=== PATIENT | male | born 1960 | race Caucasian/White ===

== ENCOUNTER → 2018-10-20 | Outpatient (CLI) | payer SELFPAY ==
[~2018-10-20] MED LIST: BP MED; FLUO10 PO; IBUP400 PO; MULVITMIND PO; Sleep Aid25 M1 PO; VITNEPH PO
[2018-10-20 15:18] LABS: BASOPHILS ABSOLUTE AUTO 0.04 K/mm3 (0.00-0.23); BASOPHILS PERCENT AUTO 1 % (0-2); EOSINOPHILS ABSOLUTE AUTO 0.12 K/mm3 (0.00-0.68); EOSINOPHILS PERCENT AUTO 2 % (0-6); Hematocrit 40.8 % (37.0-53.0); Hemoglobin 13.7 g/dL (13.5-17.5); IMMATURE GRAN ABSOLUTE AUTO 0.01 K/mm3 (0.00-0.10); IMMATURE GRAN PERCENT AUTO 0 % (0-1); LYMPHOCYTES PERCENT AUTO 32 % (21-46); MONOCYTES ABSOLUTE AUTO 0.29 K/mm3 (0.16-1.47); MONOCYTES PERCENT AUTO 6 % (4-13); Mean Corpuscular HGB 30.2 pg (26.0-34.0); Mean Corpuscular HGB Conc 33.6 g/dL (31.5-36.5); Mean Corpuscular Volume 90 fL (80-100); Mean Platelet Volume 9.5 fL (9.1-12.4); NEUTROPHILS ABSOLUTE AUTO 2.97 K/mm3 (1.96-9.15); NEUTROPHILS PERCENT AUTO 59 % (41-73); Platelet Count 153 K/mm3 (150-400); RDW Coefficient Variation 12.8 % (11.7-14.2); RDW Standard Deviation 42.1 fL (35.1-46.3); Red Blood Cell Count 4.53 M/mm3 (4.30-5.90); White Blood Cell Count 5.03 K/mm3 (4.00-11.30)
== END | disposition home or self-care (01) ==
LOC: LAB EV 15:13 → LAB SHORT 15:13
PROVIDERS: Physician Assistant Surgical
DX: M79.675 Pain in left toe(s) (principal)
CPT/HCPCS: 84550; 85025

== ENCOUNTER 2022-03-06 10:55 | Emergency (ER) | payer OTHER ==
[~2022-03-06] VITALS: Ht 182.9 cm; Wt 72.6 kg
[2022-03-06 11:43] LABS: BASOPHILS ABSOLUTE AUTO 0.03 K/mm3 (0.00-0.23); BASOPHILS PERCENT AUTO 1 % (0-2); EOSINOPHILS ABSOLUTE AUTO 0.02 K/mm3 (0.00-0.68); EOSINOPHILS PERCENT AUTO 0 % (0-6); Hemoglobin 14.5 g/dL (13.5-17.5); IMMATURE GRAN ABSOLUTE AUTO 0.01 K/mm3 (0.00-0.10); IMMATURE GRAN PERCENT AUTO 0 % (0-1); LYMPHOCYTES ABSOLUTE AUTO 0.72 K/mm3 (0.84-5.20); LYMPHOCYTES PERCENT AUTO 13 % (21-46); MONOCYTES ABSOLUTE AUTO 0.24 K/mm3 (0.16-1.47); MONOCYTES PERCENT AUTO 4 % (4-13); Mean Corpuscular Volume 94 fL (80-100); Mean Platelet Volume 9.1 fL (9.1-12.4); NEUTROPHILS ABSOLUTE AUTO 4.51 K/mm3 (1.96-9.15); NEUTROPHILS PERCENT AUTO 82 % (41-73); Platelet Count 146 K/mm3 (150-400); RDW Coefficient Variation 13.4 % (11.7-14.2); RDW Standard Deviation 46.7 fL (35.1-46.3); Red Blood Cell Count 4.67 M/mm3 (4.30-5.90); White Blood Cell Count 5.53 K/mm3 (4.00-11.30)
[2022-03-06 12:00] LABS: Albumin/Globulin Ratio 1.3 (0.8-1.8); Bilirubin, Total 0.5 mg/dL (0.1-1.0); Bun/Creatinine Ratio 17.5 (12.0-20.0); Calcium, Blood 8.7 mg/dL (8.5-10.1); Creatinine, Blood 0.63 mg/dL (0.60-1.20); Globulin, Blood 3.1 g/dL (2.2-4.0); Magnesium, Blood 1.9 mg/dL (1.6-2.4); Potassium, Blood 3.9 mmol/L (3.5-5.5); Total Protein, Blood 7.1 g/dL (6.4-8.2)
[2022-03-06 14:25] LABS: U Amphetamine Screen Not Detected; U Barbituate Screen Not Detected; U Benzodiazapine Screen Not Detected; U Buprenorphine Screen Not Detected; U Cannabinoids Screen DETECTED; U Cocaine Screen Not Detected; U Methadone Screen Not Detected; U Methamphetamine Screen Not Detected; U Opiates Screen Not Detected; U Oxycodone Screen Not Detected; U Phencyclidine Screen Not Detected; U Propoxyphene Screen Not Detected
== END 2022-03-06 15:10 | disposition left against medical advice (07) ==
LOC: ER 10:55
PROVIDERS: Physician Assistant
DX: G40.409 Other generalized epilepsy and epileptic syndromes, not intractable, without status epilepticus (principal); Z79.899 Other long term (current) drug therapy
CPT/HCPCS: 70450; 80053; 83735; 85025; 93005; 93010; G0480

== ENCOUNTER 2022-04-14 06:51 | Emergency (ER) | payer OTHER ==
[~2022-04-14] VITALS: Ht 182.9 cm; Wt 72.6 kg
[2022-04-14 07:05] LABS: Calcium, Ionized (POC) 1.13 mmol/L (1.10-1.46); Chloride (POC) 102 mmol/L (98-108); Creatinine (POC) 0.9 mg/dL (0.8-1.3); Glucose (ISTAT POC) 129 mg/dL (70-99); Hemoglobin (POC) 15.3 g/dL (13.5-17.5); Potassium (POC) 4.1 mmol/L (3.5-5.5); Sodium (POC) 140 mmol/L (135-148); Total CO2 (POC) 27 mmol/L (21-32)
[2022-04-14 07:11] LABS: BASOPHILS ABSOLUTE AUTO 0.03 K/mm3 (0.00-0.23); BASOPHILS PERCENT AUTO 1 % (0-2); EOSINOPHILS ABSOLUTE AUTO 0.04 K/mm3 (0.00-0.68); EOSINOPHILS PERCENT AUTO 1 % (0-6); Hematocrit 44.2 % (37.0-53.0); Hemoglobin 14.7 g/dL (13.5-17.5); IMMATURE GRAN ABSOLUTE AUTO 0.01 K/mm3 (0.00-0.10); IMMATURE GRAN PERCENT AUTO 0 % (0-1); LYMPHOCYTES ABSOLUTE AUTO 0.83 K/mm3 (0.84-5.20); LYMPHOCYTES PERCENT AUTO 21 % (21-46); MONOCYTES ABSOLUTE AUTO 0.18 K/mm3 (0.16-1.47); MONOCYTES PERCENT AUTO 5 % (4-13); Mean Corpuscular HGB 31.2 pg (26.0-34.0); Mean Corpuscular HGB Conc 33.3 g/dL (31.5-36.5); Mean Corpuscular Volume 94 fL (80-100); Mean Platelet Volume 8.7 fL (9.1-12.4); NEUTROPHILS ABSOLUTE AUTO 2.91 K/mm3 (1.96-9.15); NEUTROPHILS PERCENT AUTO 73 % (41-73); Platelet Count 164 K/mm3 (150-400); RDW Coefficient Variation 13.3 % (11.7-14.2); RDW Standard Deviation 46.1 fL (35.1-46.3); Red Blood Cell Count 4.71 M/mm3 (4.30-5.90)
[2022-04-14] MEDS ORDERED: MELO7.5 (07:22)
[2022-04-14] MEDS ORDERED: NORTRIPTYLINE PO (07:22)
[2022-04-14 07:28] LABS: Alanine Aminotransfer (ALT/SGP 83 U/L (12-78); Albumin, Blood 3.8 g/dL (3.4-5.0); Albumin/Globulin Ratio 1.1 (0.8-1.8); Alk Phos 129 U/L (50-136); Anion Gap 6 mmol/L (6-16); Aspartate Aminotrans (AST/SGOT 76 U/L (12-37); Bilirubin, Total 0.5 mg/dL (0.1-1.0); Blood Urea Nitrogen 11 mg/dL (8-24); CO2, Blood 29 mmol/L (21-32); Calcium, Blood 9.1 mg/dL (8.5-10.1); Chloride, Blood 105 mmol/L (98-108); Creatinine, Blood 0.78 mg/dL (0.60-1.20); Globulin, Blood 3.4 g/dL (2.2-4.0); Glomerular Filtration Rate 103 (60-); Glucose, Blood 130 mg/dL (70-99); Magnesium, Blood 1.5 mg/dL (1.6-2.4); Potassium, Blood 4.1 mmol/L (3.5-5.5); Sodium, Blood 140 mmol/L (136-145); Total Protein, Blood 7.2 g/dL (6.4-8.2)
== END 2022-04-14 10:47 | disposition home or self-care (01) ==
LOC: ER 06:51
PROVIDERS: Emergency Medicine
DX: R56.9 Unspecified convulsions (principal); F10.10 Alcohol abuse, uncomplicated; Z88.5 Allergy status to narcotic agent; Z79.899 Other long term (current) drug therapy; F17.200 Nicotine dependence, unspecified, uncomplicated
CPT/HCPCS: 80047; 80053; 83735; 84484; 85014; 85025; 93005; 93010; J7030

== ENCOUNTER 2022-07-31 06:22 | Observation (INO) | payer OTHER ==
[~2022-07-31] VITALS: Ht 182.9 cm; Wt 80.0 kg
[~2022-07-31 06:22] MED LIST changes: +MELO7.5; +NORTRIPTYLINE PO
[2022-07-31 07:02] LABS: BASOPHILS ABSOLUTE AUTO 0.02 K/mm3 (0.00-0.23); BASOPHILS PERCENT AUTO 0 % (0-2); EOSINOPHILS ABSOLUTE AUTO 0.07 K/mm3 (0.00-0.68); EOSINOPHILS PERCENT AUTO 1 % (0-6); Hematocrit 44.2 % (37.0-53.0); Hemoglobin 13.9 g/dL (13.5-17.5); IMMATURE GRAN ABSOLUTE AUTO 0.01 K/mm3 (0.00-0.10); IMMATURE GRAN PERCENT AUTO 0 % (0-1); LYMPHOCYTES ABSOLUTE AUTO 1.02 K/mm3 (0.84-5.20); LYMPHOCYTES PERCENT AUTO 19 % (21-46); MONOCYTES ABSOLUTE AUTO 0.28 K/mm3 (0.16-1.47); MONOCYTES PERCENT AUTO 5 % (4-13); Mean Corpuscular HGB 30.5 pg (26.0-34.0); Mean Corpuscular HGB Conc 31.4 g/dL (31.5-36.5); Mean Corpuscular Volume 97 fL (80-100); Mean Platelet Volume 9.2 fL (9.1-12.4); NEUTROPHILS ABSOLUTE AUTO 3.99 K/mm3 (1.96-9.15); NEUTROPHILS PERCENT AUTO 74 % (41-73); Platelet Count 145 K/mm3 (150-400); RDW Standard Deviation 46.7 fL (35.1-46.3); Red Blood Cell Count 4.56 M/mm3 (4.30-5.90); White Blood Cell Count 5.39 K/mm3 (4.00-11.30)
[2022-07-31 07:12] LABS: Alanine Aminotransfer (ALT/SGP 25 U/L (12-78); Albumin, Blood 3.5 g/dL (3.4-5.0); Albumin/Globulin Ratio 1.1 (0.8-1.8); Alk Phos 106 U/L (50-136); Anion Gap 6 mmol/L (6-16); Aspartate Aminotrans (AST/SGOT 29 U/L (12-37); Bilirubin, Total 0.3 mg/dL (0.1-1.0); Blood Urea Nitrogen 11 mg/dL (8-24); CO2, Blood 24 mmol/L (21-32); Calcium, Blood 8.8 mg/dL (8.5-10.1); Chloride, Blood 111 mmol/L (98-108); Creatinine, Blood 0.73 mg/dL (0.60-1.20); Ethanol (Alcohol), Blood, Med <3 mg/dL; Globulin, Blood 3.2 g/dL (2.2-4.0); Glomerular Filtration Rate 104 (60-); Glucose, Blood 131 mg/dL (70-99); Potassium, Blood 4.8 mmol/L (3.5-5.5); Sodium, Blood 141 mmol/L (136-145); Total Protein, Blood 6.7 g/dL (6.4-8.2)
[2022-07-31 08:26] LABS: Source, Urine Clean Catch
[2022-07-31 08:29] LABS: Bilirubin, Urine Neg (Neg); Blood, Urine Neg (Neg); Glucose Qualitative, Urine Neg (Neg); Ketones, Urine Neg (Neg); Leukocyte Esterase, Urine Neg (Neg); Nitrite, Urine Neg (Neg); Protein, Urine Neg (Neg); Specific Gravity, Urine 1.015 (1.003-1.022); Urobilinogen, Urine NORM (Normal); pH, Urine 6.5 (5.0-8.0)
[2022-07-31 08:30] LABS: Appearance, Urine Clear (Clear); Color, Urine Yellow (P-Yellow)
[2022-07-31 08:55] LABS: U Amphetamine Screen Not Detected; U Barbituate Screen Not Detected; U Benzodiazapine Screen Not Detected; U Cannabinoids Screen DETECTED; U Cocaine Screen Not Detected; U Methadone Screen Not Detected; U Methamphetamine Screen Not Detected; U Opiates Screen Not Detected; U Phencyclidine Screen Not Detected
[2022-07-31 08:56] LABS: U Buprenorphine Screen Not Detected; U Oxycodone Screen Not Detected; U Propoxyphene Screen Not Detected
[2022-07-31] MEDS ORDERED: Nortriptyline H75 MG PO (09:25)
--- NOTE | 2022-07-31 16:09 | NUR ---
SHIFT SUMMARY: ASSUMED CARE OF PATIENT UPON HIS ARRIVAL FROM ED AT 1130. WAS SLEEPING IN ARRIVAL, AROUSEABLE TO SPEECH. TRANSFERRED SELF TO BED FROM [facility] AND IMMEDIATELY BEGAN TO VOMIT. MEDICATIONS RECONCILED. NO SEIZURE ACTIVITY NOTED SINCE ARRIVAL.
--- NOTE | 2022-08-01 04:13 | NUR ---
SHIFT SUMMARY PT SLEPT MUCH OF THE NIGHT. WHEN AWAKE PT IS SLOW TO RESPOND WITH MILD CONFUSION. REPEATING QUESIONS FREQUENTLY AFTER RECENTLY RECIEVING AN ANSWER. DOES NOT REMEMBER EVENTS THAT BROUGHT HIM TO THE HOSPITAL. NO SEIZURE ACTIVITY NOTED THIS EVENING. VITAL SIGNS STABLE. PT DENIES PAIN. ATE SEVERAL CLEAR LIQUID SNACKS THROUGHOUT THE NIGHT. OVERALL, PT HAD AN UNEVENTFUL NIGHT.
[2022-08-01] MEDS ORDERED: LEVE500 PO (13:46)
--- NOTE | 2022-08-01 16:09 | NUR ---
PT AWAKE DURING SHIFT REPORT, JUST GETTING TO TO VISIT. PT WANTING FOOD AND THEN TO GO HOME. DIET ADVANCED TO REGULAR PER DR CALI AND PT REQUEST. PT TOLERATED WELL. DR CALI LATER IN TO SEE PT AND DISCUSS PLAN OF CARE. NO FURTHER SEIZURE ACTIVITY SINCE COMING TO ER. PT TO D/C TO HOME WITH ANTI-SEIZURE MEDICATION. PT AND VERBALIZED UNDERSTANDING. MEDS FAXED TO [facility], PER REQUEST. PT INDEPENDENT IN AND ABLE TO DRESS HIMSELF. IV SITE D/C'D WNL'S. D/C INSTRUCTIONS REVIEWED WITH PT AND . PT ASSISTED OUT TO 'S CAR VIA W/C.
== END 2022-08-01 14:09 | disposition home or self-care (01) ==
LOC: ER 06:22 → MEDS 06:23
PROVIDERS: Emergency Medicine; ADMIT Internal Medicine
DX: G40.209 Localization-related (focal) (partial) symptomatic epilepsy and epileptic syndromes with complex partial seizures, not intractable, without status epilepticus (principal); R73.9 Hyperglycemia, unspecified; F17.200 Nicotine dependence, unspecified, uncomplicated; Z88.5 Allergy status to narcotic agent; Z79.899 Other long term (current) drug therapy
CPT/HCPCS: 36415; 70450; 80053; 81003; 82947; 83036; 84146; 84484; 85025; 93005; 93010; 96366; 96367; 96375; A9270; G0378; G0480; J1885; J1953; J2405; J3411; J7030; J7050

== ENCOUNTER 2023-03-03 08:13 | Day surgery (SDC) | payer OTHER, BC ==
[~2023-03-03] VITALS: Ht 180.3 cm; Wt 71.5 kg
[~2023-03-03 08:13] MED LIST changes: +ALBU90OI INH; +LEVE500 PO; +Nortriptyline H75 MG PO
[2023-03-03 09:36] VITALS: BP 110/77
[2023-03-03] MEDS ORDERED: TRELEGY ELLIPT1 EACH INH (09:41)
--- NOTE | 2023-03-03 10:25 | NUR ---
03/03/23 [email or web address] Mary Ellen Saunders MONITOR INTACT WITH CONTINUOUS PULSE OXIMETRY, CONTINUOUS END TITAL CO2, AND INTERMITTENT BLOOD PRESSURE AT START OF PROCEDURE.
[2023-03-03 11:21] VITALS: BP 147/85
[2023-03-03 11:30] VITALS: BP 132/92
--- NOTE | 2023-03-03 11:44 | NUR ---
Patient up to Ambulate independently. Gait steady. Discharge instructions reviewed with patient. Patient verbalizes understanding. Copy given to patient to take home. Patient States Post-Procedure ride home has been arranged. Discharged via wheelchair to private car for ride home. BELONGINGS SENT WITH PT. DENIES PAIN OR NAUSEA.
== END 2023-03-03 23:51 | disposition home or self-care (01) ==
LOC: ORSCMMR 08:13 → ORD 09:45 → ORSCMMR 09:45
PROVIDERS: Internal Medicine Gastroenterology
PROC: 0DB58ZX Excision of Esophagus, Via Natural or Artificial Opening Endoscopic, Diagnostic (ICD-10-PCS; principal; 2023-03-03 09:45)
PROC: 0DB78ZX Excision of Stomach, Pylorus, Via Natural or Artificial Opening Endoscopic, Diagnostic (ICD-10-PCS; principal; 2023-03-03 09:45)
PROC: 0DBN8ZX Excision of Sigmoid Colon, Via Natural or Artificial Opening Endoscopic, Diagnostic (ICD-10-PCS; principal; 2023-03-03 09:45)
PROC: 0DBP8ZX Excision of Rectum, Via Natural or Artificial Opening Endoscopic, Diagnostic (ICD-10-PCS; principal; 2023-03-03 09:45)
DX: Z12.11 Encounter for screening for malignant neoplasm of colon (principal); Z86.010 Personal history of colon polyps; R74.8 Abnormal levels of other serum enzymes; D12.5 Benign neoplasm of sigmoid colon; K62.1 Rectal polyp; K64.8 Other hemorrhoids; F17.210 Nicotine dependence, cigarettes, uncomplicated; Z79.899 Other long term (current) drug therapy
CPT/HCPCS: 88305; 88342; J2370; J2405; J2704; J7120

== ENCOUNTER 2023-06-09 09:23 | Emergency (ER) | payer OTHER ==
[~2023-06-09] VITALS: Ht 180.3 cm; Wt 69.0 kg
[~2023-06-09 09:23] MED LIST changes: +TRELEGY ELLIPT1 EACH INH
[2023-06-09 09:28] VITALS: BP 136/87
== END 2023-06-09 12:32 | disposition home or self-care (01) ==
LOC: ER 09:23
DX: S61.412A Laceration without foreign body of left hand, initial encounter (principal); Z23 Encounter for immunization; W22.8XXA Striking against or struck by other objects, initial encounter; Z88.5 Allergy status to narcotic agent; Z88.8 Allergy status to other drugs, medicaments and biological substances; Z79.899 Other long term (current) drug therapy; F17.200 Nicotine dependence, unspecified, uncomplicated
CPT/HCPCS: 12004; 90471; 90702; 90715; 99282-25

== ENCOUNTER 2023-06-21 09:34 | Emergency (ER) | payer OTHER ==
[~2023-06-21] VITALS: Ht 180.3 cm; Wt 68.0 kg
[2023-06-21 10:23] VITALS: BP 158/99
== END 2023-06-21 10:44 | disposition home or self-care (01) ==
LOC: ER 09:34
DX: S61.412D Laceration without foreign body of left hand, subsequent encounter (principal); X58.XXXD Exposure to other specified factors, subsequent encounter; Z88.5 Allergy status to narcotic agent; Z79.51 Long term (current) use of inhaled steroids; Z79.899 Other long term (current) drug therapy; F17.200 Nicotine dependence, unspecified, uncomplicated
CPT/HCPCS: 99281

== ENCOUNTER 2024-09-21 17:28 | Emergency (ER) | payer SELFPAY ==
[~2024-09-21] VITALS: Ht 180.3 cm; Wt 40.8 kg
== END 2024-09-21 17:45 ==
LOC: ER 17:28
DX: I46.9 Cardiac arrest, cause unspecified (principal); F17.200 Nicotine dependence, unspecified, uncomplicated; Z88.5 Allergy status to narcotic agent; Z88.8 Allergy status to other drugs, medicaments and biological substances; Z79.899 Other long term (current) drug therapy
CPT/HCPCS: 99285